=== PATIENT | male | born 1990 | race Caucasian/White ===

== ENCOUNTER 2016-12-14 21:54 | Emergency (ER) | payer OTHER ==
[~2016-12-14] VITALS: Ht 182.9 cm; Wt 170.8 kg
[2016-12-14 21:56] VITALS: BP 158/94
[2016-12-14] MEDS ORDERED: KETOROLAC 30 MG/1 ML IM ONE (22:30)
[2016-12-14] MEDS ORDERED: KETOROLAC 30 MG/1 ML ONE (22:38)
== END 2016-12-14 23:22 | disposition home or self-care (01) ==
LOC: ED 23:00
DX: S83.92XA Sprain of unspecified site of left knee, initial encounter (principal); M77.51 Other enthesopathy of right foot and ankle; J45.909 Unspecified asthma, uncomplicated; Z88.1 Allergy status to other antibiotic agents; X58.XXXA Exposure to other specified factors, initial encounter; Y93.89 Activity, other specified; Y92.098 Other place in other non-institutional residence as the place of occurrence of the external cause; Y99.8 Other external cause status
CPT/HCPCS: 73564; 73630; 96372; 99284; J1885

== ENCOUNTER 2019-10-25 19:59 | Emergency (ER) | payer SELFPAY ==
[~2019-10-25] VITALS: Ht 182.9 cm; Wt 150.5 kg
[2019-10-25 20:05] VITALS: BP 146/100
--- NOTE | 2019-10-25 20:18 | NUR ---
PT AMBULATORY TO ROOM, STEADY GAIT.
[2019-10-25] MEDS ORDERED: LIDOCAINE-MPF 1%, 5ML ONE (20:36)
[2019-10-25] MEDS ORDERED: BUPIVACAINE 0.25% ONE (20:36)
[2019-10-25] MEDS ORDERED: BUPIVACAINE 0.25% INFIL ONE (21:00)
[2019-10-25] MEDS ORDERED: LIDOCAINE 1%, 10ML INFIL ONE (21:00)
--- NOTE | 2019-10-25 21:06 | NUR ---
LATE ENTRY FOR 2049: ERP TO BEDSIDE TO DO DENTAL BLOCK.
== END 2019-10-25 21:07 | disposition home or self-care (01) ==
LOC: ED 20:45
DX: K02.9 Dental caries, unspecified (principal); R51 Headache; J45.909 Unspecified asthma, uncomplicated; Z79.2 Long term (current) use of antibiotics
CPT/HCPCS: 64400; 99284